=== PATIENT | male | born 1995 | race Caucasian/White ===

== ENCOUNTER 2020-11-30 07:42 | Day surgery (SDC) | payer OTHER ==
[~2020-11-30 07:42] MED LIST: CEFAZOLIN SODIUM IN 0.9 % NACL 2 GM/100 ML BAG IV ONE; metroNIDAZOLE 500 MG/100 ML 500 MG/100 ML BAG ONE
[2020-11-30] MEDS ORDERED: LACTATED RINGERS 1,000 ML IV ONE ×2 (08:10→10:26)
[2020-11-30] MEDS ORDERED: PROPOFOL 200 MG/20 ML VIAL IVP ONE (08:19)
[2020-11-30] MEDS ORDERED: DEXAMETHASONE 4 MG/ML VIAL ONE (08:19)
[2020-11-30] MEDS ORDERED: fentaNYL 100 MCG/2 ML VIAL ONE (08:19)
[2020-11-30] MEDS ORDERED: LIDOCAINE-MPF 2% 5 ML VIAL ONE (08:19)
[2020-11-30] MEDS ORDERED: ONDANSETRON 4 MG/2 ML VIAL ONE (08:19)
[2020-11-30] MEDS ORDERED: MIDAZOLAM 2 MG/2 ML VIAL ONE (08:19)
[2020-11-30] MEDS ORDERED: ROCURONIUM 50 MG/5 ML VIAL ONE (08:19)
[2020-11-30] MEDS ORDERED: BUPIVACAINE 0.25% PF 30 ML VIAL ONE (08:21)
--- NOTE | 2020-11-30 08:38 | HISTORY & PHYSICAL EXAMINATION ---
Chief Complaint - Chief Complaint Chief Complaint: skin inflammation buttocks cleft area History of Present Illness - History Obtained From Records Reviewed: yes History obtained from: pt Exam Limitations: none - History of Present Illness HPI Comment/Other: Pilonidal cyst disease with waxing and waning inflammation and drainage for nearly a year History - Past Medical History Cardiovascular: reports: None Respiratory: reports: Asthma Endocrine/Autoimmune: reports: None GI: reports: None : reports: None HEENT: reports: None Psych: reports: None Musculoskeletal: reports: None Derm: reports: Other MRSA Hx?: No Meds/Allgy - Home Medications Home Medications: Ambulatory Orders Medication Instructions Recorded Confirmed No Known Home Medications 11/29/20 11/29/20 - Allergies Allergies/Adverse Reactions: Allergies Allergy/AdvReac Type Severity Reaction Status Date / Time azithromycin [From Zithromax] AdvReac Unknown Verified 11/29/20 13:31 Review of Systems - Other Findings Other Findings: 10 pt ros as above otherwise unremarkable Exam - Vital Signs Reviewed Vital Signs: Yes Vital Signs: Vital Signs x48h Temp Pulse Resp BP Pulse Ox 11/30/20 07:45 36.2 C L 64 16 137/81 H 99 - Physical Exam General Appearance: positive: No acute distress, Alert Eyes Bilateral: positive: PERRL, EOMI ENT: positive: No signs of dehydration Neck: positive: No JVD Respiratory: positive: Breath sounds nml Cardiovascular: positive: Regular rate & rhythm Abdomen: positive: Non-tender, No distention Skin: positive: Other (extensive pilonidal cyst disease) Neurologic/Psychiatric: positive: Oriented x3 Conclusion/Plan - Problem List (1) Pilonidal cyst Conclusion/Plan: plan excision. kevin procedure. parq held and consent obtained
[2020-11-30] MEDS ORDERED: MORPHINE 2 MG/ML CARPUJECT IVP PRN (08:39)
[2020-11-30] MEDS ORDERED: ONDANSETRON 4 MG/2 ML VIAL IVP PRN (08:39)
[2020-11-30] MEDS ORDERED: ATROPINE ABBOJECT 1 MG/10 ML SYRINGE IVP PRN (08:39)
[2020-11-30] MEDS ORDERED: METOCLOPRAMIDE 10 MG/2 ML VIAL IVP PRN (08:39)
[2020-11-30] MEDS ORDERED: fentaNYL 100 MCG/2 ML VIAL IVP PRN (08:39)
[2020-11-30] MEDS ORDERED: NALOXONE 0.4 MG/ML VIAL IVP PRN (08:39)
[2020-11-30] MEDS ORDERED: HYDROmorphone 0.5 MG/0.5 ML SYRINGE IVP PRN (08:39)
[2020-11-30] MEDS ORDERED: ePHEDrine 50 MG/ML VIAL IVP PRN (08:39)
--- NOTE | 2020-11-30 08:39 | ANESTHESIA ---
Pre-Anesthesia VS, & Labs - Diagnosis pilonidal cyst - Procedure pilonidal cyst excision Vital Signs: Temp Pulse Resp BP Pulse Ox 36.2 C L 64 16 137/81 H 99 11/30/20 07:45 11/30/20 07:45 11/30/20 07:45 11/30/20 07:45 11/30/20 07:45 Height: 5 ft 8 in Weight (kg): 79.1 kg Body Mass Index: 26.5 BMI Classification: Overweight - NPO >8 hours Home Medications and Allergies Home Medications: Ambulatory Orders No Known Home Medications 11/29/20 No Known Home Medications 11/29/20 Allergies/Adverse Reactions: Allergies Allergy/AdvReac Type Severity Reaction Status Date / Time azithromycin [From Zithromax] AdvReac Unknown Verified 11/29/20 13:31 Anes History & Medical History - Anesthetic History Anesthesia Complications: reports: No previous complications Family history of Anesthesia Complications: Denies Family history of Malignant Hyperthermia: Denies - Medical History Cardiovascular: reports: None Pulmonary: reports: Asthma Gastrointestinal: reports: None Urinary: reports: None Musculoskeletal: reports: None Endocrine/Autoimmune: reports: None Skin: reports: Other Exam General: Alert, Oriented x3, Cooperative Dental: WNL Mouth Openin Fingerbreadth Neck Mobility: Normal Mallampati classification: I Thyromental Distance: 4-6 cm Respiratory: Lungs clear Cardiovascular: Regular rate Abdomen: Normal bowel sounds Extremities: No clubbing Neurological: Normal gait Plan Anesthesia Type: General Consent for Procedure(s) Verified and Reviewed: Yes Code Status: Attempt Resuscitation ASA classification: 2-Mild systemic disease Is this case an emergency?: No
[2020-11-30] MEDS ORDERED: LACTATED RINGERS 1,000 ML IV SCH (09:00)
[2020-11-30] MEDS ORDERED: BUPIVACAINE 0.25% PF 30 ML VIAL SUBQ ONE (09:18)
[2020-11-30] MEDS ORDERED: SUGAMMADEX 200 MG/2 ML VIAL IVP ONE (09:23)
[2020-11-30] MEDS ORDERED: HYDROcod/ACETAM 5/325 MG TABLET PO PRN (10:05)
--- NOTE | 2020-11-30 10:10 | OPERATIVE REPORT ---
Operative Report - General Procedure Date: 11/30/20 Planned Procedure: pilonidal cyst excision Pre-Op Diagnosis: pilonidal cyst extensive Procedure Performed: pilonidal cyst excision/ extensive/ kevin procedure Post Op Diagnosis: pilonidal cyst extensive - Procedure Note Primary Surgeon: niurka blue Anesthesia Technique: General ET tube, Local Pathology: not sent Estimated Blood Loss (mL): 25 Drain/Tube Type: Other (none) Findings: as above 2.5 x 4.5 cm cyst Complications: none - Other Other Information/Narrative: The patient was properly identified brought to the operating room. And stretcher general endotracheal anesthesia was induced. He was then carefully repositioned and padded prone. He was prepped and draped in a sterile fashion and given preoperative antibiotics. He had extensive pilonidal cyst disease. Cephalad he had 2 inflammatory nodules over an area approximately 1.5 x 3 cm. Caudad he had numerous midline sinus tracts with hairs present. Local anesth etic was given. An elliptical incision was made right lateral excising the inflammatory nodules. The incision extended an additional 2 cm for total length of 4 cm right lateral of midline. The nearly adjacent sinus tracts were excised in midline with a narrow 1.5 cm elliptical incision. The pilonidal cyst and surrounding inflammatory tissue and scar tissue was removed back to normal healthy tissue. Subcutaneous flaps were raised bilateral. Hemostasis was assured. Deep subcutaneous tissue was reapproximated with interrupted 2-0 Vicryl suture. Buried interrupted subdermal 3-0 Vicryl sutures were then placed. Skin was further loosely reapproximated with vertical mattress 3-0 nylon suture. He tolerated the procedure well was repositioned supine on the stretcher awakened and brought to recovery in good condition.
[2020-11-30 11:15] VITALS: BP 125/83
--- NOTE | 2020-11-30 16:59 | ANESTHESIA POST OP EVALUATION ---
Anesthesia Post Eval - Post Anesthesia Eval Vitals: Last Vital Signs Temp 36.1 C L 11/30/20 11:14 Pulse 77 11/30/20 11:14 Resp 16 11/30/20 11:14 BP 125/83 H 11/30/20 11:14 Pulse Ox 97 11/30/20 11:14 CV Function Including HR & BP: Stable Pain Control: Satisfactory Nausea & Vomiting: Negative Mental Status: Baseline Respiratory Status: Airway Patent Hydration Status: Satisfactory Anesthesia Complications: None
== END 2020-11-30 07:43 | disposition home or self-care (01) ==
LOC: SDS 07:42
PROVIDERS: ATTEND Surgery
DX: L05.91 Pilonidal cyst without abscess (principal); J45.909 Unspecified asthma, uncomplicated
CPT/HCPCS: 11771; J0690; J7120